=== PATIENT | female | born 1930 | race Caucasian/White ===

== ENCOUNTER 2017-09-17 18:00 | Emergency (ER) | payer MEDICARE, OTHER ==
[~2017-09-17] VITALS: Ht 160 cm; Wt 47.2 kg
[~2017-09-17 18:00] MED LIST: (None)20 M1 PO; ACET325 PO; ACYC800 PO; ALBU3IS INH; CITA20 PO; CLON.1; CLON.1 PO; CYCL10 PO; Colace100 MG PO; DIAZ5 PO; DIGO.125 PO; DILT180ER PO; DILT60 PO; FAMO20 PO; FURO20 PO; GABA100 PO; GABA300 PO; GABA600 PO; HYDACE10B PO; HYDMOR2; HYDMOR2 PO; HYDMOR4 PO; HYDR1TAB94 PO; LAVAP17G PO; LIDO5TP TD; LIDO5TP TOP; LISI20; LORA2 PO; LOSA25 PO; LOSA50 PO; Lomotil Tablet1 EACH PO; MELO7.5 PO; METO100 PO; METO100ER PO; METO25 PO; METO50 PO; METO50ER PO; MORP15ER PO; MULVITMIND PO; Metoprolol Tar100 MG PO; Micro-K10 MEQ PO; Miralax17 GM PO; NAPR500 PO; OXYC5 PO; PANT40 PO; POLY500 PO; PRED10 PO; PRED20 PO; PROACE100 PO; SACC250C; TIZANIDINE HCL2 MG PO; TRAM50 PO; VICODIN 5-3001 EACH PO; WARF1 PO; WARF2 PO; WARF3 PO; ZOHYDRO ER10 M1; Zanaflex2 M1 PO; Zanaflex4 MG PO; [UNRECOGNIZED DRUG - OTHER]
[2017-09-17 18:20] LABS: BASOPHILS ABSOLUTE AUTO 0.03 K/mm3 (0.00-0.23); BASOPHILS PERCENT AUTO 1 % (0-2); EOSINOPHILS ABSOLUTE AUTO 0.05 K/mm3 (0.00-0.68); EOSINOPHILS PERCENT AUTO 1 % (0-6); Hematocrit 49.5 % (33.0-51.0); Hemoglobin 15.6 g/dL (11.5-16.0); IMMATURE GRAN ABSOLUTE AUTO 0.01 K/mm3 (0.00-0.10); IMMATURE GRAN PERCENT AUTO 0 % (0-1); LYMPHOCYTES PERCENT AUTO 41 % (21-46); MONOCYTES ABSOLUTE AUTO 0.61 K/mm3 (0.16-1.47); MONOCYTES PERCENT AUTO 10 % (4-13); Mean Corpuscular HGB 29.8 pg (26.0-34.0); Mean Corpuscular HGB Conc 31.5 g/dL (31.5-36.5); Mean Corpuscular Volume 95 fL (80-100); Mean Platelet Volume 10.8 fL (9.1-12.4); NEUTROPHILS ABSOLUTE AUTO 2.76 K/mm3 (1.96-9.15); NEUTROPHILS PERCENT AUTO 47 % (41-73); Platelet Count 147 K/mm3 (150-400); RDW Coefficient Variation 14.5 % (11.7-14.2); Red Blood Cell Count 5.23 M/mm3 (3.80-5.20); White Blood Cell Count 5.86 K/mm3 (4.00-11.30)
[2017-09-17 18:38] LABS: Prothrombin Time Results 21.2 Sec (9.7-11.5)
[2017-09-17 18:41] LABS: Albumin, Blood 3.8 g/dL (3.4-5.0); Albumin/Globulin Ratio 1.1 (0.8-1.8); Bilirubin, Total 0.4 mg/dL (0.1-1.0); Bun/Creatinine Ratio 23.3 (12.0-20.0); Creatinine, Blood 1.16 mg/dL (0.40-1.00); Globulin, Blood 3.6 g/dL (2.2-4.0); Potassium, Blood 3.8 mmol/L (3.5-5.5); Total Protein, Blood 7.4 g/dL (6.4-8.2)
== END 2017-09-17 21:15 | disposition short-term general hospital (02) ==
LOC: ER 18:00
PROVIDERS: Emergency Medicine
DX: I62.9 Nontraumatic intracranial hemorrhage, unspecified (principal); D68.9 Coagulation defect, unspecified; I10 Essential (primary) hypertension; I48.91 Unspecified atrial fibrillation; K21.9 Gastro-esophageal reflux disease without esophagitis; Z88.8 Allergy status to other drugs, medicaments and biological substances; Z88.2 Allergy status to sulfonamides; Z88.6 Allergy status to analgesic agent; Z88.5 Allergy status to narcotic agent; Z79.899 Other long term (current) drug therapy; Z79.01 Long term (current) use of anticoagulants
CPT/HCPCS: 70450; 80053; 85025; 85610; 93005; 93010; 96374; 96375; 96376; 99285; C9132